=== PATIENT | male | born 1985 | race Caucasian/White ===

== ENCOUNTER 2018-09-09 10:45 | Emergency (ER) | payer MEDICAID ==
[2018-09-09 12:21] LABS: ADD UMIC NO; UR ASCORBIC ACID 20 mg/dL (NEGATIVE); UR BILIRUBIN (Dip) NEGATIVE (NEGATIVE); UR BLOOD (Dip) NEGATIVE (NEGATIVE); UR CLARITY CLEAR (CLEAR); UR COLOR YELLOW (YELLOW); UR GLUCOSE (Dip) NEGATIVE (NEGATIVE); UR KETONES (Dip) NEGATIVE (NEGATIVE); UR LEUKOCYTE ESTERASE (Dip) NEGATIVE Leu/ul (NEGATIVE); UR NITRITE (Dip) NEGATIVE (NEGATIVE); UR SPECIFIC GRAVITY (Dip) 1.016 (1.003-1.030); UR TOTAL PROTEIN (Dip) NEGATIVE (NEGATIVE); UR UROBILINOGEN (Dip) 1+ mg/dL (NEGATIVE)
== END 2018-09-09 14:08 | disposition home or self-care (01) ==
LOC: FTE 10:45
DX: R07.89 Other chest pain (principal)
CPT/HCPCS: 71045; 71100; 81003; 93005; 99285-25